=== PATIENT | male | born 1955 | race Caucasian/White ===

== ENCOUNTER 2017-01-15 14:08 | Emergency (ER) | payer OTHER, BC ==
[2017-01-15] MEDS ORDERED: ASPIRIN 81 MG CHEWABLE CTB PO ONE (14:19)
[2017-01-15] MEDS ORDERED: ASPIRIN 81 MG CHEWABLE CTB ONE (14:25)
[2017-01-15] MEDS ORDERED: NITROGLYCERIN 0.4 MG TAB SL ONE (14:26)
[2017-01-15 14:27] LABS: BASOPHILS % (AUTO) 1 % (0-3); EOSINOPHILS % (AUTO) 2 % (0-9); HEMATOCRIT 44 % (39-53); MEAN CORPUSCULAR HGB CONC 33.7 gm/dl (32.0-36.0); MEAN CORPUSCULAR VOLUME 85 fL (80-100); NEUTROPHILS % (AUTO) 65.6 % (37-80)
[2017-01-15] MEDS: NITROGLYCERIN 0.4 MG TAB SL PRN ×2 (14:28→14:40)
[2017-01-15] MEDS ORDERED: METOPROLOL TARTRATE 25 MG TAB PO ONE (14:37)
[2017-01-15] MEDS ORDERED: METOPROLOL TARTRATE 25 MG TAB ONE (14:40)
[2017-01-15 14:44] LABS: CALCIUM 9.1 mg/dl (8.5-10.1); GLOM FILT RATE 73 mL/min (>60); POTASSIUM 3.9 mMol/L (3.5-5.1); SODIUM 138 mMol/L (136-145)
[2017-01-15] MEDS ORDERED: KETOROLAC TROMETHAMINE 30 MG/ML SOL IV ONE (14:52)
[2017-01-15] MEDS ORDERED: KETOROLAC TROMETHAMINE 30 MG/ML SOL ONE (14:53)
[2017-01-15 15:03] VITALS: TEMP 99.4
[2017-01-15 15:29] VITALS: BP 115/76; PULSE 85; RESP 16; O2SAT 96
== END 2017-01-15 15:22 | disposition home or self-care (01) | DRG 313 ==
LOC: ED 14:08
DX: R07.89 Other chest pain (principal)
CPT/HCPCS: 71010; 80048; 84484; 85025; 93005; 96374; 99284; J1885

== ENCOUNTER 2017-01-17 09:18 | Emergency (ER) | payer OTHER, BC ==
[2017-01-17] MEDS ORDERED: SODIUM CHLORIDE 0.9% FLUSH 10 ML SOL IV PRN (09:28)
[2017-01-17] MEDS ORDERED: ASPIRIN 81 MG CHEWABLE CTB PO STA (09:28)
[2017-01-17] MEDS ORDERED: NITROGLYCERIN 0.4 MG TAB SL ONE (09:29)
[2017-01-17] MEDS ORDERED: ASPIRIN 81 MG CHEWABLE CTB ONE (09:29)
[2017-01-17] MEDS: NITROGLYCERIN 0.4 MG TAB SL PRN ×3 (09:35→09:47)
[2017-01-17 09:37] LABS: BASOPHILS % (AUTO) 1 % (0-3); EOSINOPHILS % (AUTO) 2 % (0-9); HEMATOCRIT 39 % (39-53); MEAN CORPUSCULAR HGB CONC 34.3 gm/dl (32.0-36.0); MEAN CORPUSCULAR VOLUME 87 fL (80-100); MONOCYTES % (AUTO) 4.4 % (0-12); NEUTROPHILS % (AUTO) 68.3 % (37-80)
[2017-01-17] MEDS ORDERED: METOPROLOL TARTRATE 25 MG TAB ONE (09:39)
[2017-01-17] MEDS ORDERED: METOPROLOL TARTRATE 25 MG TAB PO ONE (09:39)
[2017-01-17 09:58] LABS: ALBUMIN 3.5 gm/dl (3.4-5.0); ALT 34 IU/L (14-63); CALCIUM 8.5 mg/dl (8.5-10.1); GLOM FILT RATE 77 mL/min (>60); POTASSIUM 4.4 mMol/L (3.5-5.1); SODIUM 138 mMol/L (136-145)
[2017-01-17] MEDS ORDERED: MORPHINE SULFATE 10 MG/ML SOL IV ONE (10:29)
[2017-01-17] MEDS ORDERED: MORPHINE SULFATE 10 MG/ML SOL ONE (10:32)
[2017-01-17 13:16] VITALS: TEMP 98.8
[2017-01-17 14:17] VITALS: PULSE 68
[2017-01-17 15:16] VITALS: BP 127/72; RESP 14; O2SAT 98
== END 2017-01-17 15:10 | disposition home or self-care (01) | DRG 313 ==
LOC: ED 09:18
DX: R07.89 Other chest pain (principal); I10 Essential (primary) hypertension
CPT/HCPCS: 36415; 80053; 82550; 84443; 84484; 85025; 85610; 85730; 93005; 99285; J2270

== ENCOUNTER 2017-03-11 08:34 | Day surgery (SDC) | payer OTHER, BC ==
[~2017-03-11 08:34] MED LIST: LIDOCAINE HCL 1% MPF SOL ONE; PROPOFOL 500 MG/50 ML EMU IV ONE
[2017-03-11 12:05] VITALS: TEMP 97
[2017-03-11 12:14] VITALS: O2SAT 97
[2017-03-11 12:27] VITALS: BP 143/76; PULSE 77; RESP 20
== END 2017-03-11 12:58 | disposition home or self-care (01) | DRG 313 ==
LOC: SURG 08:34
PROVIDERS: ATTEND Internal Medicine Gastroenterology
DX: R07.89 Other chest pain (principal); K29.50 Unspecified chronic gastritis without bleeding; K44.9 Diaphragmatic hernia without obstruction or gangrene
CPT/HCPCS: 99001; J2001; J2704

== ENCOUNTER 2018-03-01 15:55 | Emergency (ER) | payer OTHER, BC ==
[2018-03-01 15:55] VITALS: O2SAT 97
[2018-03-01] MEDS ORDERED: NITROGLYCERIN 0.4 MG TAB SL PRN (16:08)
[2018-03-01] MEDS ORDERED: ASPIRIN 81 MG CHEWABLE CTB PO ONE (16:09)
[2018-03-01] MEDS ORDERED: ASPIRIN 81 MG CHEWABLE CTB ONE (16:11)
[2018-03-01] MEDS ORDERED: NITROGLYCERIN 0.4 MG TAB SL ONE (16:11)
[2018-03-01 16:32] VITALS: RESP 20; TEMP 97.9
[2018-03-01 16:44] LABS: BASOPHILS % (AUTO) 1 % (0-3); EOSINOPHILS % (AUTO) 5 % (0-9); HEMATOCRIT 38 % (39-53); HEMOGLOBIN 12.1 gm/dl (13.5-17.7); LYMPHOCYTES % (AUTO) 33.3 % (10-50); MEAN CORPUSCULAR HEMOGLOBIN 25.1 pg (27.0-32.0); MEAN CORPUSCULAR HGB CONC 31.5 gm/dl (32.0-36.0); MONOCYTES % (AUTO) 7.3 % (0-12); NEUTROPHILS % (AUTO) 53.7 % (37-80)
[2018-03-01 16:46] LABS: MEAN CORPUSCULAR VOLUME 80 fL (80-100)
[2018-03-01 17:02] LABS: BLOOD UREA NITROGEN 20 mg/dl (7-18); CALCIUM 8.4 mg/dl (8.5-10.1); CHLORIDE 104 mMol/L (98-107); CREATININE 1.07 mg/dl (0.80-1.30); GLUCOSE 103 mg/dl (74-106); POTASSIUM 4.3 mMol/L (3.5-5.1); SODIUM 139 mMol/L (136-145); TROP I < 0.017 ng/ml (0.000-0.056)
[2018-03-01 18:00] VITALS: BP 151/75; PULSE 68
== END 2018-03-01 17:44 | disposition home or self-care (01) | DRG 313 ==
LOC: ED 15:55
DX: R07.89 Other chest pain (principal)
CPT/HCPCS: 36415; 71045; 80048; 84484; 85025; 93005; 99283; 99285; A9270-GY